=== PATIENT | male | born 1975 | race Caucasian/White ===

== ENCOUNTER 2019-10-31 22:55 | Emergency (ER) | payer OTHER, SELFPAY ==
[2019-10-31 23:01] VITALS: BP 177/113; PULSE 120; RESP 18; TEMP 36.8; O2SAT 97; BMI 37.5
--- NOTE | 2019-10-31 23:15 | XR_ITS ---
WS: [id number] PORTABLE CHEST HISTORY: palpitations COMPARISON: None available. Hyperinflated lungs. Mild emphysema. Mildly thickened interstitium throughout both lungs but greatest in the lower lung turner. No focal consolidation. No pleural effusion or pneumothorax. Cardiac size: Normal. Mediastinum/Aorta: Normal mediastinum. No osseous abnormality seen. XR/XR chest 1V portable [id number] IMPRESSION: Suspect mild pneumonitis or pulmonary congestion.
--- NOTE | 2019-10-31 23:15 | ECG_ITS ---
Measurements Intervals [place] Rate: 107 P: 47 WI: 159 QRS: 65 QRSD: 113 T: 26 QT: 329 QTc: 439 SINUS TACHYCARDIA MODERATE INTRAVENTRICULAR CONDUCTION DELAY [110+ ms QRS DURATION] ABNORMAL RHYTHM ECG No previous ECG available for comparison Electronically Signed On 11-01-2019 19:06:15 CDT by Hao Hutton M.D. [id number]
--- NOTE | 2019-10-31 23:23 | W.ED.ARRPALP ---
HPI - Arrhythmia/Palpitations General: Chief Complaint: Arrhythmia/Palpitations Stated Complaint: heart palps Time Seen by Provider: 10/31/19 23:15 Source: patient Mode of arrival: ambulatory Limitations: no limitations History of Present Illness: HPI narrative: 43-year-old male states that over the last 2 to 3 weeks he has had palpitations and felt like his heart rate has been fast. He denies any chest pain or shortness of breath but he states he can feel his heart racing. He states he has been under a lot of stress due to all the coronavirus. Denies any vomiting. Denies any worsening or improving factors. MD complaint: heart racing Onset (ago): week(s) Duration: intermittent Severity: moderate Associated symptoms: Deny nausea or vomiting Review of Systems Const: Denies: fever, chills, body aches or change in appetite Eyes: Denies: blurry vision or eye discomfort ENMT: Denies: throat pain or dental pain Card: Reports: palpitations; Denies: chest pain Resp: Denies: shortness of breath GI: Denies: abdominal pain, nausea, vomiting or diarrhea : Denies: painful urination Musc: Denies: neck pain or back pain Skin/Breast: Denies: rash Neuro: Denies: headache Psych: Denies: depression Sergio/Lymph: Denies: easy bruising All/Imm: Denies: hives PFSH ED PFSH: Social History Smoking and tobacco status: former smoker Physical Exam Const: COMMON NORMALS: no apparent distress, oriented x3 and healthy appearing HENMT: COMMON NORMALS: normocephalic and head/scalp atraumatic HEAD & SCALP: normocephalic and atraumatic Eye: COMMON NORMALS: PERRL and EOMs intact bilaterally PUPIL: Yes PERRL Neck/C-Spine: COMMON NORMALS: full ROM and supple Chest: COMMONS NORMALS: inspection of chest normal and palpation of chest normal Resp: COMMON NORMALS: normal respiratory effort, no retractions, no use of accessory muscles and clear to auscultation bilaterally AUSCULTATION: clear to auscultation bilaterally Cardio: COMMON NORMALS: regular rhythm and no murmurs RATE: tachycardic RHYTHM: regular rhythm GI: COMMON NORMALS: normal to inspection, nondistended, normoactive bowel sounds, soft to palpation, non-tender and no masses PALPATION: Yes soft Extremity: COMMON NORMALS: normal to inspection and full ROM Neuro: COMMON NORMALS: oriented x3, moves all extremities and no focal motor deficits Psych: COMMON NORMALS: mental status grossly normal, thought process normal and cooperative THOUGHT PROCESS: normal thought process Skin: COMMON NORMALS: no rashes or lesions noted and no wounds GENERAL SKIN EXAM: no rashes or lesions noted Course Vital Signs: Vital signs: Vital Signs Temperature 98.3 F 10/31/19 23:01 Pulse Rate 97 11/01/19 01:17 Respiratory Rate 18 11/01/19 01:17 Blood Pressure 141/92 11/01/19 01:17 Pulse Oximetry 96 11/01/19 01:17 MDM - Arrhythmia/Palpitations MDM Narrative: Medical decision making narrative: Patient presents here with palpitations likely from stress. Patient has no signs of pulmonary embolism as d-dimer is negative. Patient's heart enzymes is normal as well. Patient is stable for discharge and is to follow-up with primary care doctor in 3 to 5 days return if worsening. Lab Data: Labs: Lab Results 10/31/19 10/31/19 10/31/19 Range/Units 23:27 23:27 23:27 WBC 9.1 (4.0-10.0) 10^3/ uL RBC 4.93 (4.1-5.3) 10^6/u L Hgb 15.5 (11.7-16.6) g/dL Hct 45.4 (42.0-52.0) % MCV 92.1 (80-94) fL MCH 31.4 (28.0-34.0) pg MCHC 34.1 (30.0-36.0) g/dL RDW 11.7 L (12.1-15.1) % Plt Count 246 (130-400) 10^3/c mm MPV 10.3 (7.4-10.4) fL Neut % (Auto) 43.5 % Lymph % (Auto) 34.5 % [place] % (Auto) 13.4 % Eos % (Auto) 7.0 % Baso % (Auto) 1.2 % Neut # (Auto) 3.9 (1.8-7.7) 10^3/u L Lymph # (Auto) 3.1 (0.8-4.8) 10^3/u L [place] # (Auto) 1.2 H (0.2-0.9) 10^3/u L Eos # (Auto) 0.6 (0.0-0.8) 10^3/u L Baso # (Auto) 0.1 (0.0-0.1) 10^3/u L Nucleated RBC % (a uto) 0 % Nucleated RBCs # 0.0 /100WBC D-Dimer (0-0.59) ug/mIFE U Sodium 141 (136-145) mmol/L Potassium 4.1 (3.5-5.1) mmol/L Chloride 105 (98-107) mmol/L Carbon Dioxide 25 (22-29) mmol/L Anion Gap 15.1 (5-19) BUN 11 (6-20) mg/dL Creatinine 1.0 (0.7-1.2) mg/dL GFR Calculation 82.3 L (90-130) mL/min Glucose 139 H (65-115) mg/dL Calculated Osmolal ity 290 (285-295) mOsm/k g Calcium 9.2 (8.5-10.5) mg/dL Total Bilirubin 0.3 (0.15-1.2) mg/dL AST 32 (0-40) U/L ALT 52 H (0-41) U/L Alkaline Phosphata se 82 (40-130) IU/L Troponin T Baselin e 6 (0-15) ng/mL Troponin T 120 Min [place] (0-15) ng/mL Delta Troponin T (0-10) ABS# Total Protein 6.5 L (6.6-8.7) g/dL Albumin 4.4 (3.5-5.2) g/dL Globulin 2.1 (1.3-4.6) g/dL 10/31/19 11/01/19 Range/Units 23:27 01:08 WBC (4.0-10.0) 10^3/ uL RBC (4.1-5.3) 10^6/u L Hgb (11.7-16.6) g/dL Hct (42.0-52.0) % MCV (80-94) fL MCH (28.0-34.0) pg MCHC (30.0-36.0) g/dL RDW (12.1-15.1) % Plt Count (130-400) 10^3/c mm MPV (7.4-10.4) fL Neut % (Auto) % Lymph % (Auto) % [place] % (Auto) % Eos % (Auto) % Baso % (Auto) % Neut # (Auto) (1.8-7.7) 10^3/u L Lymph # (Auto) (0.8-4.8) 10^3/u L [place] # (Auto) (0.2-0.9) 10^3/u L Eos # (Auto) (0.0-0.8) 10^3/u L Baso # (Auto) (0.0-0.1) 10^3/u L Nucleated RBC % (a uto) % Nucleated RBCs # /100WBC D-Dimer 0.24 (0-0.59) ug/mIFE U Sodium (136-145) mmol/L Potassium (3.5-5.1) mmol/L Chloride (98-107) mmol/L Carbon Dioxide (22-29) mmol/L Anion Gap (5-19) BUN (6-20) mg/dL Creatinine (0.7-1.2) mg/dL GFR Calculation (90-130) mL/min Glucose (65-115) mg/dL Calculated Osmolal ity (285-295) mOsm/k g Calcium (8.5-10.5) mg/dL Total Bilirubin (0.15-1.2) mg/dL AST (0-40) U/L ALT (0-41) U/L Alkaline Phosphata se (40-130) IU/L Troponin T Baselin e (0-15) ng/mL Troponin T 120 Min [place] 6.00 (0-15) ng/mL Delta Troponin T 0 (0-10) ABS# Total Protein (6.6-8.7) g/dL Albumin (3.5-5.2) g/dL Globulin (1.3-4.6) g/dL Imaging Data^: CXR: Attestation: I personally reviewed and interpreted this imaging study as follows: My impression: no acute abnormalities EKG Data^: EKG 1: Attestation: I personally reviewed and interpreted this EKG as follows: EKG interpretation date: 10/31/19 EKG interpretation time: 23:26 Interpretation: sinus tach hr [address] or t wave abnormalities qrs 113 qtc 391 EKG 2: Attestation: I personally reviewed and interpreted this EKG as follows: EKG interpretation date: 11/01/19 EKG interpretation time: 01:20 Interpretation: nsr hr [address] or t wave abnormalities qrs 113 qtc 401 Discharge Plan Discharge Patient Disposition: Home, Self-Care Clinical Impression: Palpitations Condition: Stable Discharge Orders: Discharge Order (Routine); Ordered 11/01/19 Ordered By: Cheryle Choi Discharge Diet: Advance as tolerated Discharge Activity: Resume usual activity Patient Instructions: Palpitations (ED) Coding Level of Care Code ED Information Technology Program Manager for Chg Fwd Exam Comprehensive
[2019-10-31] MEDS: sodium chloride 0.9% 1,000 ML 999 ML IV (23:32)
[2019-10-31] MEDS: LORazepam 2 mg/mL INJ 1 mL 1 MG IVP (23:33)
[2019-10-31 23:36] LABS: Basophils # 0.1 10^3/uL (0.0-0.1); Basophils % 1.2 %; Eosinophils # 0.6 10^3/uL (0.0-0.8); Hematocrit 45.4 % (42.0-52.0); Hemoglobin 15.5 g/dL (11.7-16.6); Lymphocytes # 3.1 10^3/uL (0.8-4.8); Lymphocytes % 34.5 %; Mean Corpuscular HGB Conc 34.1 g/dL (30.0-36.0); Mean Corpuscular Hemoglobin 31.4 pg (28.0-34.0); Mean Corpuscular Volume 92.1 fL (80-94); Mean Platelet Volume 10.3 fL (7.4-10.4); Monocytes # 1.2 10^3/uL (0.2-0.9); Monocytes % 13.4 %; Neutrophils # 3.9 10^3/uL (1.8-7.7); Neutrophils % 43.5 %; Nucleated Red Blood Cells % 0 %; Platelet Count 246 10^3/cmm (130-400); Red Blood Count 4.93 10^6/uL (4.1-5.3); Red Cell Distribution Width 11.7 % (12.1-15.1); White Blood Count 9.1 10^3/uL (4.0-10.0)
[2019-10-31 23:52] LABS: Alanine Aminotransferase 52 U/L (0-41); Albumin Level 4.4 g/dL (3.5-5.2); Alkaline Phosphatase 82 IU/L (40-130); Anion Gap 15.1 (5-19); Aspartate Amino Transferase 32 U/L (0-40); Blood Urea Nitrogen 11 mg/dL (6-20); Calcium 9.2 mg/dL (8.5-10.5); Carbon Dioxide 25 mmol/L (22-29); Chloride 105 mmol/L (98-107); Globulin 2.1 g/dL (1.3-4.6); Glomerular Filtration Rate 82.3 mL/min (90-130); Glucose 139 mg/dL (65-115); Osmolality Calculated 290 mOsm/kg (285-295); Potassium 4.1 mmol/L (3.5-5.1); Sodium 141 mmol/L (136-145); Total Bilirubin 0.3 mg/dL (0.15-1.2); Total Protein 6.5 g/dL (6.6-8.7)
[2019-10-31 23:53] LABS: Troponin(5th) Baseline 6 ng/mL (0-15)
[2019-10-31 23:57] VITALS: BP 140/103; PULSE 100; RESP 21; O2SAT 95
--- NOTE | 2019-11-01 01:15 | ECG_ITS ---
Measurements Intervals [place] Rate: 88 P: 36 NC: 161 QRS: 56 QRSD: 113 T: 28 QT: 355 QTc: 431 SINUS RHYTHM MODERATE INTRAVENTRICULAR CONDUCTION DELAY [110+ ms QRS DURATION] No previous ECG available for comparison Electronically Signed On 11-01-2019 19:08:35 CDT by Hao Hutton M.D. [email or web address]
[2019-11-01 01:17] VITALS: BP 141/92; PULSE 97; RESP 18; O2SAT 96
[2019-11-01 01:22] LABS: D Dimer 0.24 ug/mIFEU (0-0.59)
[2019-11-01 01:28] LABS: Troponin 5 2HR Delta 0 ABS# (0-10)
[2019-11-01 01:50] VITALS: BP 137/88; PULSE 86; RESP 17; O2SAT 96
== END 2019-11-01 01:52 | disposition home or self-care (01) ==
PROVIDERS: Emergency Provider Emergency Medicine
DX: R00.2 Palpitations (principal); Z87.891 Personal history of nicotine dependence; R00.0 Tachycardia, unspecified
CPT/HCPCS: 12345; 36415; 71045; 80053; 84484; 85025; 85378; 93005; 96361; 96374; 96375; 99283; 99284; J2060; J7030

== ENCOUNTER 2019-12-13 11:35 | Outpatient (CLI) | payer OTHER, SELFPAY ==
--- NOTE | 2019-12-13 11:41 | ECG_ITS ---
NAME OF STUDY: TREADMILL STRESS ECHOCARDIOGRAM INDICATION: [Chest Pain] This study is dictated under a different electronic health record. Please see the stress echo interpretation for details Electronically Signed On 12-13-2019 18:17:00 CDT by Dung Anaya M.D. [email or web address]
[2019-12-13 11:44] VITALS: BMI 37.5
--- NOTE | 2019-12-13 12:15 | USCV_ITS ---
Stress Echo Reyes Phillips Age: 43 Gender: M : 1975 Exam Date: 12/13/2019 12:18 Ordering Phys: Jenny Vines MD Technologist: Page Salas Exam Location: [facility] [place] Indication: Chest Pain Rhythm: Sinus Patient History: Chest pain, Hypertension, Family history Cardiac Medications: Beta demetrio Medications in past 24 hours: NONE Contrast: Stress Results Protocol: Jarad Total dose(mL): Exercise Duration (min:sec): 4:34 METS: 7.0 Resting HR: 100 Resting BP: 110 / 63 Peak HR: 166 Peak BP: 172 / 69 Max Predicted HR: 179 93 % Max Predicted HR Target HR: 152 Double Product: 15551 Stress Summary: The patient's target heart rate was achieved The hemodynamic response to exercise was normal BP Response: Mildly hypertensive Reason for Termination: Test terminated after reaching target heart rate (85% max predicted) Cardiac Symptoms: Short of Breath ECG Analysis Resting ECG: Sinus rhythm with an incomplete right bundle branch block but no ST changes Stress ECG: No ST changes with exercise to suggest ischemia Arrhythmia: None MEASUREMENTS (Male/Female) Normal Values FINDINGS Treadmill stress echocardiogram without evidence for ischemia by EKG or by echo. Normal baseline LV function. CONCLUSIONS Treadmill stress echo without evidence for ischemia or infarction. Dr. Dung Anaya MD (Electronically Signed) Final Date: 13 Dec 2019 18:20 S
[2019-12-13 12:35] VITALS: BP 150/58; PULSE 99
== END 2019-12-13 11:36 | disposition home or self-care (01) ==
LOC: CDL 11:38
PROVIDERS: PCP Family Medicine; Visit Provider Family Medicine
DX: R07.9 Chest pain, unspecified (principal); Z82.49 Family history of ischemic heart disease and other diseases of the circulatory system; I10 Essential (primary) hypertension
CPT/HCPCS: 93017; 93350; 93352

== ENCOUNTER → 2020-02-01 16:41 | Outpatient (BNVA) | payer OTHER, SELFPAY | PROVIDERS: PCP Family Medicine; Visit Provider Nurse Practitioner Family | DX: R37 Sexual dysfunction, unspecified (principal); F41.9 Anxiety disorder, unspecified; F32.9 Major depressive disorder, single episode, unspecified | CPT/HCPCS: 84403 ==

== ENCOUNTER → 2020-02-26 09:42 | Outpatient (BNVA) | payer OTHER, SELFPAY | PROVIDERS: PCP Family Medicine; Visit Provider Family Medicine | DX: R73.9 Hyperglycemia, unspecified (principal); I10 Essential (primary) hypertension | CPT/HCPCS: 80053; 83036 ==

== ENCOUNTER → 2020-05-31 12:00 | Outpatient (BNVA) | payer OTHER, SELFPAY | PROVIDERS: PCP Family Medicine; Visit Provider Nurse Practitioner | DX: R73.9 Hyperglycemia, unspecified (principal); I10 Essential (primary) hypertension; E04.9 Nontoxic goiter, unspecified; Z11.59 Encounter for screening for other viral diseases; R74.8 Abnormal levels of other serum enzymes; K21.9 Gastro-esophageal reflux disease without esophagitis; F41.9 Anxiety disorder, unspecified; F32.9 Major depressive disorder, single episode, unspecified | CPT/HCPCS: 80053; 80061; 81000; 83036; 84439; 84443; 84481; 85025; 86705; 86706; 86709; 86803; 87340 ==

== ENCOUNTER 2020-06-21 07:05 | Outpatient (CLI) | payer OTHER, SELFPAY ==
--- NOTE | 2020-06-21 07:15 | US_ITS ---
WS: [id number] ULTRASOUND ABDOMEN CLINICAL INFORMATION: R74.8 - Abnormal levels of other serum enzymes COMPARISON: None. FINDINGS: Technically difficult examination. Liver Size: Enlarged Craniocaudal length: 18.3 cm. Echogenicity: Coarse consistent with fatty infiltration Surface nodularity: None. Mass (size and location): None. Bile ducts Intrahepatic ducts: Normal. Common bile duct diameter: 0.6 cm. Gallbladder Normal. Gallstones: None. Gallbladder sludge: None. Gallbladder wall thickening: None. Pericholecystic fluid: None. Sonographic [place] sign: Absent. Pancreas Normal as visualized. Right kidney: Normal. Hydronephrosis: None. Size: 10.7 cm x 5.8 cm x 5.2 cm Abdominal aorta and IVC Visualized portions are normal. Ascites: None. US/US liver [id number] IMPRESSION: 1. Hepatomegaly with diffuse fatty infiltration. 2. Normal gallbladder. 3. No hydronephrosis in right kidney.
--- NOTE | 2020-06-21 08:00 | US_ITS ---
WS: [id number] ULTRASOUND THYROID TECHNIQUE: Ultrasound of the thyroid. CLINICAL INFORMATION: E04.9 - Nontoxic goiter, unspecified COMPARISON: None. FINDINGS: Thyroid: Right and left thyroid lobes are normal in size and echotexture. No thyroid nodules are pres ent. Right thyroid lobe: 4.3 cm x 2.2 cm x 1.5 cm Left thyroid lobe: 4.6 cm x 1.6 cm x 1.3 cm. Isthmus: 0.3 mm. Cervical lymphadenopathy: None. US/US thyroid [id number] IMPRESSION: Normal thyroid ultrasound examination.
== END 2020-06-21 07:06 | disposition home or self-care (01) ==
LOC: US 07:09
PROVIDERS: PCP Family Medicine; Visit Provider Nurse Practitioner
DX: R74.8 Abnormal levels of other serum enzymes (principal); E04.9 Nontoxic goiter, unspecified; R16.0 Hepatomegaly, not elsewhere classified; K76.0 Fatty (change of) liver, not elsewhere classified
CPT/HCPCS: 76536; 76705

== ENCOUNTER → 2021-01-06 11:57 | Outpatient (BNVA) | payer OTHER, SELFPAY | PROVIDERS: PCP Family Medicine; Visit Provider Nurse Practitioner | DX: Z11.59 Encounter for screening for other viral diseases (principal) | CPT/HCPCS: 80053; 86705; 86706; 86709; 86803; 87340 ==

== ENCOUNTER → 2021-05-28 08:03 | Outpatient (BNVA) | payer OTHER, SELFPAY | PROVIDERS: PCP Family Medicine; Visit Provider Nurse Practitioner | DX: R53.83 Other fatigue (principal); Z12.5 Encounter for screening for malignant neoplasm of prostate; I10 Essential (primary) hypertension; E78.2 Mixed hyperlipidemia | CPT/HCPCS: 80053; 80061; 84403; 84439; 84443; 84481; 85025; 86618; 86666; 86757; G0103 ==

== ENCOUNTER → 2021-11-28 11:35 | Outpatient (BNVA) | payer OTHER, SELFPAY | PROVIDERS: PCP Family Medicine; Visit Provider Nurse Practitioner | DX: I10 Essential (primary) hypertension (principal); K21.9 Gastro-esophageal reflux disease without esophagitis; F41.9 Anxiety disorder, unspecified; F32.9 Major depressive disorder, single episode, unspecified; R00.2 Palpitations; J30.89 Other allergic rhinitis; J30.2 Other seasonal allergic rhinitis; N40.0 Benign prostatic hyperplasia without lower urinary tract symptoms | CPT/HCPCS: 80053; 80061 ==